=== PATIENT | male | born 1945 | race Caucasian/White ===

== ENCOUNTER → 2016-11-14 | Day surgery (SDC) | payer MEDICARE ==
[2016-11-14] VITALS (11 sets, daily range): BP systolic 94–126; BP diastolic 54–88
[~2016-11-14] VITALS: Ht 175.3 cm; Wt 99.8 kg
[~2016-11-14] MED LIST: ASPIRIN81 MG ORAL; ATORVASTATIN CA20 MG ORAL; Bacitracin 50000 Units Vial ONE; Bacitracin Oint 15gm Tube TOPIC ONE; Bupivacaine 0.25% Inj 30ml INJ ONE; CLOPIDOGREL75 MG ORAL; COQ-10100 M1 PO; Dexamethasone 4mg/ml vial ONE; FAMOTIDINE40 MG ORAL; HUMALOG MI100 UNIT/6 SQ; Hydromorphone 0.5mg/0.5ml inj IVP PRN; Ketorolac 30mg Inj IV PRN; LISINOPRIL10 MG ORAL; Lidocaine 1% Plain 30 ml INJ ONE; METOPROLOL SUCC25 MG ORAL; Norco 5mg/325mg tab ORAL PRN; Propofol 10mg/ml 20ml IV ONE; VITAMIN D1000 UNI1 ORAL; ceFAZolin sod 1 GM in NS 55 ML IVPB ONE; fentaNYL 100 mcg/2 mL IV PRN
--- NOTE | 2016-11-14 11:06 | Pre-Procedure Note/Attestation ---
Pre-Procedure Note/Attestation Complete Prior to Procedure Planned Procedure: right Procedure Narrative: correction of contracted digit 4th toe right with release of flexor tendon. aseptic debridement of ulcer right 4rth toe Indications for Procedure Pre-Operative Diagnosis: contracted 4rth toe right. diabetic pressure ulcer right 4rth toe . Attestation I attest that I discussed the nature of the procedure; its benefits; risks and complications; and alternatives (and the risks and benefits of such alternatives ), prior to the procedure, with the patient (or the patient's legal textile designs sales representative). I attest that, if there was a reasonable possibility of needing a blood transfusion, the patient (or the patient's legal textile designs sales representative) was given the [place] [employer] standardized written summary, pursuant to the [place] Blood Safety Act ([place] Health and Safety Code # 1645, as amended). I attest that I re-evaluated the patient just prior to the surgery and that there has been no change in the patient's H&P, except as documented below: SHANIQUA PANDA DPM Nov 14, 2016 11:06
[2016-11-14 11:14] LABS: BASOPHILS % (AUTO) 1.6 % (0.0-2.0); EOSINOPHILS % (AUTO) 4.3 % (0.0-3.0); LYMPHOCYTES % (AUTO) 22.3 % (20.0-45.0); MEAN CORPUSCULAR HEMOGLOBIN 30.9 PG (27.0-31.0); MEAN CORPUSCULAR HGB CONC 34.5 G/DL (32.0-36.0); MEAN CORPUSCULAR VOLUME 89 FL (80-99); MEAN PLATELET VOLUME 8.3 FL (6.5-10.1); MONOCYTES % (AUTO) 8.6 % (1.0-10.0); NEUTROPHILS % (AUTO) 63.2 % (45.0-75.0); PLATELET COUNT 228 K/UL (150-450); RED BLOOD COUNT 4.69 M/UL (4.70-6.10); RED CELL DISTRIBUTION WIDTH 11.7 % (11.6-14.8); WHITE BLOOD COUNT 11.1 K/UL (4.8-10.8)
[2016-11-14 11:37] LABS: PROTHROMBIN TIME 10.2 SEC (9.30-11.50)
--- NOTE | 2016-11-14 11:41 | Anethesia Preoperative Eval ---
Anesthesia Pre-op PMH/ROS General Date of Evaluation: Nov 14, 2016 Time of Evaluation: 10:30 Anesthesiologist: Katarzyna ASA Score: ASA 3 Mallampati Score Class I : Soft palate, uvula, fauces, pillars visible Class II: Soft palate, uvula, fauces visible Class III: Soft palate, base of uvula visible Class IV: Only hard plate visible Mallampati Classification: Class II Surgeon: Nithin Diagnosis: Hammer toe Surgical Procedure: Tendon release Anesthesia History: none Family History: no anesthesia problems Allergies: Coded Allergies: No Known Allergies (Unverified , 11/12/16) Medications: see eMAR Past Medical History Cardiovascular: Reports: CAD, HTN Pulmonary: Denies: COPD, RENEE, asthma, other Gastrointestinal/Genitourinary: Denies: CRI, ESRD, GERD, other Neurologic/Psychiatric: Denies: CVA, TIA, dementia, depression/anxiety, other Endocrine: Reports: DM HEENT: Denies: [place] (L), [place] (R), cataract (L), cataract (R), glaucoma, other Hematology/Immune: Denies: DVT, anemia, bleeding disorder, other Other: obesity Anesthesia Pre-op Phys. Exam Physician Exam Last Vital Signs Date Time Temp Pulse Resp B/P Pulse Ox O2 Delivery O2 Flow Rate FiO2 11/14/16 10:47 98.1 70 18 126/62 98 Room Air Cardiovascular: RRR Airway Exam Mallampati Score: Class II Anesthesia Pre-op A/P Labs Hematology Test 11/14/16 10:45 White Blood Count 11.1 K/UL (4.8-10.8) H Red Blood Count 4.69 M/UL (4.70-6.10) L Hemoglobin 14.5 G/DL (14.2-18.0) Hematocrit 41.9 % (42.0-52.0) L Mean Corpuscular Volume 89 FL (80-99) Mean Corpuscular Hemoglobin 30.9 PG (27.0-31.0) Mean Corpuscular Hemoglobin Concent 34.5 G/DL (32.0-36.0) Red Cell Distribution Width 11.7 % (11.6-14.8) Platelet Count 228 K/UL (150-450) Mean Platelet Volume 8.3 FL (6.5-10.1) Neutrophils (%) (Auto) 63.2 % (45.0-75.0) Lymphocytes (%) (Auto) 22.3 % (20.0-45.0) Monocytes (%) (Auto) 8.6 % (1.0-10.0) Eosinophils (%) (Auto) 4.3 % (0.0-3.0) H Basophils (%) (Auto) 1.6 % (0.0-2.0) Coagulation Test 11/14/16 10:45 Prothrombin Time 10.2 SEC (9.30-11.50) Prothromb Time International Ratio 1.0 (0.9-1.1) Activated Partial Thromboplast Time 26 SEC (23-33) Chemistry Test 11/14/16 10:45 Sodium Level Pending Potassium Level Pending Chloride Level Pending Carbon Dioxide Level Pending Blood Urea Nitrogen Pending Creatinine Pending Estimat Glomerular Filtration Rate Pending Glucose Level Pending Calcium Level Pending NERI OLIVAREZ M.D. Nov 14, 2016 11:41
--- NOTE | 2016-11-14 11:43 | Immediate Post-Op Evaluation ---
Immediate Post-Op Evalulation Immediate Post-Op Evalulation Procedure: Tendon release toe Date of Evaluation: Nov 14, 2016 Time of Evaluation: 11:42 IV Fluids: 200 Blood Products: 0 Estimated Blood Loss: 0 Urinary Output: 0 Blood Pressure Systolic: 110 Blood Pressure Diastolic: 80 Pulse Rate: 77 Respiratory Rate: 20 O2 Sat by Pulse Oximetry: 96 Temperature (Fahrenheit): 98 Pain Score (1-10): 2 Nausea: No Vomiting: No Complications na Patient Status: awake Hydration Status: adequate Drug: Ancef 1G Given Within 1 Hr of Incision: Yes Time Given: 11:12 NERI OLIVAREZ M.D. Nov 14, 2016 11:43
--- NOTE | 2016-11-14 11:44 | 48 Hour Post Anesthesia Eval ---
Post Anesthesia Evaluation Procedure: Tendon release toe Date of Evaluation: Nov 14, 2016 Time of Evaluation: 13:00 Blood Pressure Systolic: 110 0: 80 Pulse Rate: 75 Respiratory Rate: 20 Temperature (Fahrenheit): 98 O2 Sat by Pulse Oximetry: 97 Airway: patent Nausea: No Vomiting: No Pain Intensity: 2 Hydration Status: adequate Cardiopulmonary Status: stable Mental Status/LOC: patient returned to baseline Follow-up Care/Observations: na Post-Anesthesia Complications: na Follow-up care needed: N/A NERI OLIVAREZ M.D. Nov 14, 2016 11:44
--- NOTE | 2016-11-14 11:49 | Brief Operative Note ---
Immediate Post Operative Note Operative Note Pre-op Diagnosis: contracted 4rth toe right. diabetic pressure ulcer right 4rth toe . Procedure: correction of 4rth toe contraction with release of the flexor tendon , aseptic debridement of ulcer right 4rth toe Post-op Diagnosis: same as pre op Post-op Diagnosis: same as pre-op Surgeon: shaniqua campuzano Anesthesiologist: gucci Anesthesia: MAC Specimen: none Complications: none Condition: stable Estimated Blood Loss: minimal Drains: none Implant(s) used?: No SHANIQUA CAMPUZANO DPM Nov 14, 2016 11:49
[2016-11-14 12:15] LABS: CALCIUM 9.5 mg/dL (8.6-10.2); CREATININE 1.2 mg/dL (0.7-1.2); GLOMERULAR FILTRATION RATE 59.9 mL/min (>60); POTASSIUM 4.3 mEQ/L (3.4-4.9)
--- NOTE | 2016-11-14 13:20 | Diagnostic Imaging Report ---
Indications: Status post right foot surgery Technique: 3 portable views of the right foot at 1244 Findings: Comparison: 1108 Right midfoot and forefoot are bandaged and splinted. Alignment of the fourth phalanges appears straighter. Surrounding soft tissue swelling. No other change. IMPRESSION: Fourth phalangeal realignment as described
--- NOTE | 2016-11-14 13:40 | Diagnostic Imaging Report ---
Indications: Pain Technique: Lateral views of the right foot Findings: Comparison: None. Lack of oblique views limits evaluation. No fracture, dislocation, lytic destruction, periosteal reaction, surrounding soft tissue swelling/foreign body/gas, or other acute changes are demonstrated. Second through fifth hammertoe deformities suggested. Prominent spur posterior aspect calcaneus. Scattered arterial mural calcifications. No additional deformity or alignment abnormality, arthritic change,, or other chronic changes are demonstrated. IMPRESSION: No evidence of acute abnormality of the right foot, limited as described Suggestion of multiple hammertoe deformities Calcaneal enthesophyte Arteriosclerosis.
--- NOTE | 2016-11-14 13:40 | Diagnostic Imaging Report ---
Indication: Cough Technique: Single portable AP view of the chest. Findings: Comparison: None. Sternal wires, cardiomediastinal surgical clips. Focal calcifications adjacent to right humeral head. The bones and extra pulmonary soft tissues, cardiomediastinal silhouette, pulmonary vasculature and parenchyma, and pleural surfaces are otherwise unremarkable. IMPRESSION: No evidence of acute cardiopulmonary disease Previous open heart surgery Suggestion of right supraspinatus calcific tendinopathy.
--- NOTE | 2016-11-14 21:08 | Pre-op HX & Phy Repo 2 SIG ---
DATE OF ADMISSION: 11/14/2016 HISTORY OF PRESENT ILLNESS: The patient is a 71-year-old male who was referred by Dr. Mayo Weller for presurgical evaluation. The patient has diabetes ulcer, hammertoe fourth digit right foot. The patient was examined. Chart was reviewed. PAST MEDICAL HISTORY/REVIEW OF SYSTEMS: Remarkable for insulin-dependent diabetes mellitus, coronary artery disease and coronary artery bypass surgery six months ago, hyperlipidemia, benign prostatic hypertrophy, GERD, hypertension. No renal failure. No thyroid problem. No GI bleeding. Denies history of asthma or bronchitis. No history of stroke. No GI ulcer. SURGICAL HISTORY: Coronary artery bypass surgery seven years ago and also angiograms. MEDICATIONS: Present medication include Humalog 75/25 twice a day for 44 units, atorvastatin 20 mg, Plavix 75 mg, lisinopril 20 mg, famotidine 40 mg, metoprolol 25 mg, baby aspirin, Co-Q enzyme 10, and vitamin C. ALLERGIES: Not known. FAMILY HISTORY: Father from complication of diabetes and mother of old age. PHYSICAL EXAMINATION: GENERAL: Alert, well-developed and well-nourished male in his 70s. VITAL SIGNS: Blood pressure 176/72, temperature 98.1 degrees, pulse 67, O2 saturation 99% on room air. SKIN: Dry and warm. Scar on the . Ulcer on the right foot. Onychomycosis toe. Lymph node not enlarged. HEENT: Head, normocephalic. Ears, clear. No discharge. Eyes, PERRLA. Extraocular muscles intact. No conjunctivitis or jaundice. Mouth, clear and moist. No dentures. NECK: No jugular venous distention. Carotids artery +2. Trachea is midline. CHEST: No deformity or asymmetry. LUNGS: Clear to auscultation and percussion. No rales or rhonchi. HEART: Sinus rhythm. No ectopy. No murmur. No S3 or S4. ABDOMEN: Soft. Liver and spleen are not enlarged. No rebound. EXTREMITIES: There is +2 ankle edema. Deformity of hammertoe on the right foot and ulceration. Full description per Dr. Weller. NERVOUS SYSTEM: No tremor. No nystagmus. No asymmetry. GENITOURINARY: History of BPH. No CVA tenderness. LABORATORY AND DIAGNOSTIC DATA: ECG normal sinus rhythm, normal ECG. The patient did not eat or drink from last night. Follow up blood sugar today 225 mg/dL. Last insulin intake was this morning. IMPRESSION: 1. Diabetic ulcer with hammertoe deformity right foot. 2. Insulin-dependent diabetes mellitus, known to have in good control. 3. Hypertension, controlled. 4. Benign prostatic hypertrophy. 5. Gastroesophageal reflux disease. 6. History of coronary artery bypass surgery seven months ago. PLAN: Debridement of ulcer, hammertoe correction of right foot per Dr. Weller. CONCLUSION: The patient's vital signs stable. Blood sugar not completely controlled. The patient had past coronary bypass surgery seven months ago, asymptomatic. The patient did not eat or drink from last night. The patient's condition optimized for surgery. Thank you very much, Dr. Weller, for privilege to participate in presurgical care of this interesting patient. Donna Oropeza M.D. DR: SHAQUILLE JOB#: [id number] CC:
--- NOTE | 2016-11-15 17:38 | History and Physical Report ---
DATE OF ADMISSION: 11/14/2016 HISTORY OF PRESENT ILLNESS: This is a 71-year-old, diabetic male with chief complaint of diabetic ulcer originating from the plantar fourth toe on the right with combination of contracted digit. The patient has been having ulcer for the past six weeks. The patient has been treated with aseptic debridement and offloading of the ulcer, but the ulcer persists, there is contraction of the toe. PAST MEDICAL HISTORY: Positive for high blood pressure, diabetic, high cholesterol. PAST SURGICAL HISTORY: No pertinent findings. ALLERGIES: No known drug allergies. SOCIAL HISTORY: Denies alcohol, tobacco, or illicit drug use. FAMILY HISTORY: No pertinent findings. PHYSICAL EXAMINATION: VITAL SIGNS: Temperature 98.6, pulse 66, respiratory rate 18, blood pressure 140/80, and O2 saturation 98% on room saturation. DERMATOLOGICAL: Open lesion approximately 0.5 centimeter plantar fourth toe on the right with hyperkeratotic lesion bordering the ulcer. The ulcer does not seems to be infected at this time. NEUROLOGICAL: Sensation is decreased, has mild diabetic neuropathy. VASCULAR: Dorsalis pedis and posterior tibial are palpable. No edema or erythema noted. MUSCULOSKELETAL: Contraction of the fourth toe is noticed with tightness of the flexor tendon. LABORATORY DATA: Has been assessed. ASSESSMENT AND PLAN: This is a 71-year-old male complaining of right foot progressively worsening ulcer as well contracted of the fourth toe on the right. The patient has done conservative treatment such as aseptic debridement and offloading. If the ulcer persist, recommended surgery as next step in management. The risks, benefits, and alternatives were discussed with the patient in detail who understands and would like to proceed with surgical intervention. All patient's questions and concerns have been answered and the patient is scheduled for surgery today 11/14/2016 [facility]. Mayo Weller D.P.M. DR: Estela JOB#: [id number] CC:
--- NOTE | 2016-11-17 21:47 | Operative Note - Dictated ---
DATE OF OPERATION: 11/14/2016 SURGEON: Mayo Weller D.P.M. ANESTHESIOLOGIST: Brenton Colón M.D. PREOPERATIVE DIAGNOSES: 1. Contracted digit, fourth, right. 2. Diabetic ulcer, plantar fourth, right foot. POSTOPERATIVE DIAGNOSES: 1. Contracted digit, fourth, right. 2. Diabetic ulcer, plantar fourth, right foot. TITLE OF OPERATION: 1. Reduction of contraction digit to release of the flexor tendon. 2. Aseptic debridement of ulcer, right fourth toe. HEMOSTASIS: None. ESTIMATED BLOOD LOSS: Less than 5 mL. MATERIAL USED: 4-0 nylon. Injectables: 6 mL of 1:1 mixture of 0.25% plain Marcaine and 1% lidocaine was injected into the right foot in the operating area. PATHOLOGY: Culture sample were gathered for both aerobic and anaerobic, and sent over to pathology for culture and sensitivity. DRESSING: Incision site was covered with bacitracin ointment, 4x4, Kerlix, and Coban. COMPLICATIONS: None. DESCRIPTION OF THE PROCEDURE: The patient was brought into the operating room, and was assisted onto the operating table in supine position. He was then well padded to avoid excessive pressure. The patient was given 1 g of Ancef before the start of surgery. A time-out was performed. A cotton padding was placed about the patient's ankle. Following IV sedation, a local anesthesia block was administered to the right foot in the area of the operation consisting of 6 mL of 1% plain Marcaine and 0.25% plain lidocaine. The foot was then scrubbed and prepared in aseptic manner. Attention was directed to the right fourth toe where a contraction was noticed. The contraction was due to the tightness of the flexor tendon. At this time, a percutaneous incision was made on the base of the fourth toe at the area of metatarsophalangeal joint on the medial side. At this time, after the initial incision, a 64 blade was inserted over the flexor tendon, trimming out the toe, the flexor tendon was cut and immediate straightening of the toe was noticed. Attention was then directed to the PIPJ over at the plantar where an ulcer of approximately 0.5 cm in diameter was noticed, also consisted of devitalized tissue as well as callus development. Aseptic debridement of ulcer was done to eliminate all devitalized tissue to a good bleeding point. No exposure of tendon was noticed. At this time, the area was copiously lavaged. Culture was taken and the area of the percutaneous stabbing was closed using a 4-0 nylon. The area was then dressed using bacitracin ointment, 4x4, Anthony, and Coban. Hyperemia was noticed to digits 1 through 5 on the right foot without any compromise. The patient tolerated the surgery and anesthesia well without any complications. He was transported to the postoperative care unit and states no pain. The patient was reminded to take antibiotic and pain medication. He was also instructed to keep his foot elevated and dressing clean, dry, and intact. Radiographic postop shoe were placed. The patient was able to bear weight partially on the right heel, but was also advised to minimize standing and ambulation for the next 24 hours. The patient is to be discharged once he is medically cleared by the anesthesiologist and to follow up with Dr. Weller . Alexandra PiedraPJohnna [place]: PHILOMENA JOB#: [id number] CC:
== END | disposition home or self-care (01) ==
LOC: SUR 09:37
DX: M20.5X1 Other deformities of toe(s) (acquired), right foot (principal); E11.621 Type 2 diabetes mellitus with foot ulcer; L97.519 Non-pressure chronic ulcer of other part of right foot with unspecified severity; E11.40 Type 2 diabetes mellitus with diabetic neuropathy, unspecified; Z79.4 Long term (current) use of insulin; I10 Essential (primary) hypertension; I25.10 Atherosclerotic heart disease of native coronary artery without angina pectoris; Z95.1 Presence of aortocoronary bypass graft; E78.5 Hyperlipidemia, unspecified; N40.0 Benign prostatic hyperplasia without lower urinary tract symptoms; K21.9 Gastro-esophageal reflux disease without esophagitis; Z79.82 Long term (current) use of aspirin
CPT/HCPCS: 11042; 28010; 36415; 71010; 73620; 73630; 80048; 85025; 85610; 85730; 87070; 87075; 87181; 87205; 93005; J2001; J2704; J3490; 94003; 94150